=== PATIENT | male | born 1980 | race Caucasian/White ===

== ENCOUNTER 2021-06-23 13:05 | Emergency (ER) | payer OTHER ==
[~2021-06-23] VITALS: Ht 172.7 cm; Wt 77.6 kg
[2021-06-23 13:25] VITALS: BP 121/75
--- NOTE | 2021-06-23 13:37 | PHYS DOC ---
General Adult EDM: Chief Complaint: MUSCLE SPASM/CRAMP HPI: HPI: Patient is a 41-year-old male presents with bilateral lower extremity cramps, left worse than right. This has been present intermittently for several days. Patient is worried about DVT. He states he has been taking magnesium, zinc and potassium supplements but they really have not been helping. He denies heavy alcohol use, has maybe a drink or 2/week. He has not been drinking recently. No history of cramping like this previously. Review of Systems: Review of Systems: Constitutional: Denies fever Eyes: Denies change in visual acuity or eye pain HENT: Denies sore throat Respiratory: Denies shortness of breath Cardiovascular: Denies chest pain GI: Denies abd pain : Denies dysuria Musculoskeletal: Denies back or extremity injury Integument: Denies rash or skin lesions Neurologic: Denies headache, focal weakness or sensory changes All other systems were reviewed and found to be within normal limits, except as documented in this note. Allergies: Allergies: Allergies Coded Allergies Type Severity Reaction Last Updated Verified No Known Drug Allergies 06/23/21 No Physical Exam: PE: Constitutional: Well developed, well nourished, no acute distress, non-toxic appearance. HENT: Normocephalic, atraumatic, bilateral external ears normal, mucosa moist, nose normal. Eyes: EOMI, conjunctiva normal, no discharge. Neck: Normal range of motion, supple, no stridor, no meningeal signs. Cardiovascular: Regular rate and rhythm Lungs & Thorax: Bilateral breath sounds clear to auscultation Abdomen: Soft, no tenderness or obvious masses Skin: Warm, dry, no erythema, no rash. Extremities: No tenderness, no cyanosis, no clubbing, ROM intact, no edema. Neurologic: Alert and oriented, normal motor function, normal sensory function, no focal deficits noted. Psychologic: Affect normal, judgement normal, mood normal. EKG: EKG: [] Radiology/Procedures: Radiology/Procedures: [] Impressions: PATIENT: DAHLIA SOTELO ACCOUNT: [id number] : 1980 LOCATION: ER AGE: 41 SEX: M EXAM STATUS: REG ER ORD. PHYSICIAN: CHARMAINE WASHINGTON MD REASON: pain PROCEDURE: VENOUS LOWER EXT BILATERAL EXAMINATION: US BILATERAL LOWEREXTREMITY VENOUS DOPPLER, 06/23/2021 3:59 PM CLINICAL INDICATION: Pain COMPARISON: None Available. PROCEDURE: Multiple grayscale, color Doppler and spectral Doppler sonographic images of the bilateral lower extremities were obtained. FINDINGS: There is no evidence of deep venous thrombosis in either lower extremity. The bilateral common femoral, femoral and popliteal veins are echolucent with normal flow on color Doppler imaging. The veins are fully compressible and show normal phasicity and reaction to augmentation. Visualized calf veins are also normal in appearance. IMPRESSION: No evidence of deep venous thrombosis in either lower extremity. Electronically signed by: Tammy Bruce MD (06/23/2021 4:37 PM) [id number] DICTATED AND SIGNED BY: TAMMY BRUCE MD DATE: 06/23/21 1635 CC: NON,STAFF; CHARMAINE WASHINGTON MD ~ Heart Score: C/O Chest Pain: No Risk Factors: Risk Factors: DM, Current or recent (<one month) smoker, HTN, HLP, family history of CAD, obesity. Risk Scores: Score 0 - 3: 2.5% MACE over next 6 weeks - Discharge Home Score 4 - 6: 20.3% MACE over next 6 weeks - Admit for Clinical Observation Score 7 - 10: 72.7% MACE over next 6 weeks - Early Invasive Strategies Course & Med Decision Making: Course & Med Decision Making Pertinent Labs and Imaging studies reviewed. (See chart for details) [] Is a 41-year-old male muscle cramps. Ultrasounds negative for DVT. Labs are unremarkable. Patient is stable for discharge. Dragon Disclaimer: Dragon Disclaimer: This electronic medical record was generated, in whole or in part, using a voice recognition dictation system. Departure Departure: Impression: Primary Impression: Muscle cramps Disposition: HOME / SELF CARE / HOMELESS Condition: STABLE Referrals: NON,STAFF (PCP) Patient Instructions: Leg Cramps CHARMAINE WASHINGTON MD Jun 23, 2021 13:37
[2021-06-23 14:07] LABS: BASO % 0 % (0-3); EOS % 0 % (0-3); HEMATOCRIT 40.7 % (39.0-53.0); HEMOGLOBIN 13.7 g/dL (13.0-17.5); LYMPH # 1.3 x10^3/uL (1.0-4.8); LYMPH % 17 % (24-48); MEAN CORPUSCULAR HEMOGLOBIN 30 pg (25-35); MEAN CORPUSCULAR HGB CONC 34 g/dL (31-37); MEAN CORPUSCULAR VOLUME 91 fL (79-100); MONO # 0.5 x10^3/uL (0.0-1.1); MONO % 7 % (0-9); NEUT # 5.8 x10^3uL (1.8-7.7); NEUT % 76 % (31-73); PLATELET COUNT 216 x10^3/uL (140-400); RED CELL DISTRIBUTION WIDTH 13.2 % (11.5-14.5); WHITE BLOOD COUNT 7.7 x10^3/uL (4.0-11.0)
[2021-06-23 14:12] LABS: CALCIUM 9.1 mg/dL (8.5-10.1); CREATININE 1.1 mg/dL (0.7-1.3); GFR 73.4; POTASSIUM 4.9 mmol/L (3.5-5.1)
[2021-06-23 14:18] LABS: ALBUMIN 3.9 g/dL (3.4-5.0); ALBUMIN/GLOBULIN RATIO 1.4 (1.0-1.7); MAGNESIUM 2.4 mg/dL (1.8-2.4); TOTAL BILIRUBIN 0.5 mg/dL (0.2-1.0); TOTAL PROTEIN 6.6 g/dL (6.4-8.2)
--- NOTE | 2021-06-23 16:40 | RAD ---
EXAMINATION: US BILATERAL LOWEREXTREMITY VENOUS DOPPLER, 06/23/2021 3:59 PM CLINICAL INDICATION: Pain COMPARISON: None Available. PROCEDURE: Multiple grayscale, color Doppler and spectral Doppler sonographic images of the bilateral lower extremities were obtained. FINDINGS: There is no evidence of deep venous thrombosis in either lower extremity. The bilateral com mon femoral, femoral and popliteal veins are echolucent with normal flow on color Doppler imaging. Th e veins are fully compressible and show normal phasicity and reaction to augmentation. Visualized rosa isela f veins are also normal in appearance. IMPRESSION: No evidence of deep venous thrombosis in either lower extremity. Electronically signed by: Tammy Bruce MD (06/23/2021 4:37 PM) [id number]
== END 2021-06-23 17:20 | disposition home or self-care (01) ==
LOC: ER 13:05
DX: R25.2 Cramp and spasm (principal); M79.605 Pain in left leg; M79.604 Pain in right leg
CPT/HCPCS: 36415; 80053; 82550; 83605; 83735; 85025; 93970; 99284